=== PATIENT | female | born 1940 | race Caucasian/White ===

== ENCOUNTER 2022-11-08 07:28 | Inpatient (IN) | payer MEDICARE ==
[2022-11-08] MEDS ORDERED: Senokot S 8.6-50 MG TAB PO PRN (14:48)
[2022-11-08] MEDS ORDERED: Bisacodyl 5 MG TAB PO PRN (14:48)
[2022-11-08] MEDS ORDERED: Bisacodyl 10 MG SUPP PR PRN (14:48)
[2022-11-08] MEDS ORDERED: Calcium Carbonate 500 MG ChewTAB PO PRN (14:48)
[2022-11-08] MEDS ORDERED: Artificial Tear Sol 15 ML BOT EA EYE PRN (14:48)
[2022-11-08] MEDS ORDERED: Benzocaine/Menthol 1 LOZ LOZ PO PRN (14:48)
[2022-11-08] MEDS ORDERED: Sodium Chloride 0.65% Nasal 44 ML BOT EA NARE PRN (14:48)
[2022-11-08] MEDS ORDERED: Benzonatate 100 MG CAP PO PRN (14:48)
[2022-11-08] MEDS ORDERED: traMADol HCl 50 MG TAB PO PRN (14:50)
[2022-11-08] MEDS ORDERED: Ibuprofen 800 MG TAB PO PRN (14:55)
[2022-11-08] MEDS ORDERED: Promethazine HCl 25 MG SUPP PR PRN (14:57)
[2022-11-08] MEDS ORDERED: Alendronate Sodium 70 mg Tablet PO SCH (15:00)
[2022-11-10] MEDS: Acetaminophen 500 MG TAB PO SCH ×6 (18:13→23:25)
[2022-11-10] MEDS: Ascorbic Acid 500 mg Chewable Tablet PO SCH ×4 (19:34→21:38)
[2022-11-10] MEDS: Aspirin 81 mg Enteric Coated Tablet PO SCH ×4 (19:45→21:40)
[2022-11-10] MEDS: traZODone HCl 50 MG TAB PO SCH ×3 (19:46→21:38)
[2022-11-10] MEDS: Ferrous Sulfate 325 MG TAB PO SCH ×4 (19:46→21:40)
[2022-11-10] MEDS: Gabapentin 300 MG CAP PO SCH ×3 (19:46→21:38)
[2022-11-10] MEDS: Levothyroxine Sodium 25 MCG TAB PO SCH ×2 (19:47→20:01)
[2022-11-10] MEDS: Metoprolol Tartrate 25 MG TAB PO SCH (21:40)
[2022-11-10] MEDS: ALPRAZolam 0.25 MG TAB PO PRN (23:29)
[2022-11-11] MEDS: Acetaminophen 500 MG TAB PO SCH ×2 (06:28→10:59)
[2022-11-11] MEDS: Ascorbic Acid 500 mg Chewable Tablet PO SCH ×2 (08:20→20:14)
[2022-11-11] MEDS: Ferrous Sulfate 325 MG TAB PO SCH ×2 (08:21→20:14)
[2022-11-11] MEDS: Aspirin 81 mg Enteric Coated Tablet PO SCH ×2 (08:21→20:15)
[2022-11-11] MEDS: Metoprolol Tartrate 25 MG TAB PO SCH ×2 (08:21→20:15)
[2022-11-11] MEDS: ALPRAZolam 0.25 MG TAB PO PRN ×2 (08:25→20:23)
[2022-11-11] MEDS: Levothyroxine Sodium 25 MCG TAB PO SCH (09:41)
[2022-11-11] MEDS ORDERED: Ibuprofen 800 MG TAB PO PRN (13:13)
[2022-11-11] MEDS ORDERED: HYDROcodone/Acetaminophen 5/325 mg Tablet PO SCH (13:30)
[2022-11-11] MEDS: Cyclobenzaprine 10 MG TAB PO PRN (16:33)
[2022-11-11] MEDS ORDERED: Acetaminophen 500 MG TAB PO SCH (18:00)
[2022-11-11] MEDS: Gabapentin 300 MG CAP PO SCH (20:08)
[2022-11-11] MEDS: traMADol HCl 50 MG TAB PO PRN (20:14)
[2022-11-11] MEDS: traZODone HCl 50 MG TAB PO SCH (20:14)
[2022-11-11] MEDS: HYDROcodone/Acetaminophen 5/325 mg Tablet PO PRN (23:02)
[2022-11-12 05:24] LABS: #Basophils 0.1 thou/uL (0.0-0.2); #Eosinphils 0.5 thou/uL (0.0-0.7); #Lymphocytes 1.3 thou/uL (1.20-3.40); #Monocytes 0.6 thou/uL (0.11-0.59); #Neutrophils 7.9 thou/uL (1.40-6.50); %Basophils 1.2 % (0.0-1.0); %Eosinophils 5.1 % (0.0-10.0); %Lymphocytes 12.4 % (21.0-51.0); %Monocytes 5.4 % (0.0-10.0); %Neutrophils 75.9 % (42.0-75.0); Hemoglobin 8.8 g/dL (12.0-16.0); Mean Corpuscular HGB CONC 32.4 g/dL (32.0-36.0); Mean Corpuscular Hemoglobin 32.6 pg (27.0-31.0); Mean Platelet Volume 5.6 fL (7.4-10.4); Platelet Count 580 10x3/uL (130-400); RBC Distribution Width 16.4 % (11.5-14.5); Red Blood Cell (RBC) Count 2.71 mill/uL (4.20-5.40); White Blood Cell (WBC) Count 10.3 10x3/uL (4.8-10.8)
[2022-11-12 05:37] LABS: Anion Gap 12 mmol/L (10-20); BUN (Urea Nitrogen) 22 mg/dL (9.8-20.1); Calc. Creatinine Clearance 62 mL/min (70-130); Calcium 9.3 mg/dL (7.8-10.44); Carbon Dioxide 26 mmol/L (23-31); Chloride 101 mmol/L (98-107); Estimated GFR 88; Glucose 91 mg/dL (83-110); Potassium 4.3 mmol/L (3.5-5.1); Sodium 135 mmol/L (136-145)
[2022-11-12] MEDS: Ondansetron ODT 4 MG TAB PO PRN (07:54)
[2022-11-12] MEDS: Ferrous Sulfate 325 MG TAB PO SCH ×2 (09:04→21:43)
[2022-11-12] MEDS: Metoprolol Tartrate 25 MG TAB PO SCH ×3 (09:04→21:46)
[2022-11-12] MEDS: Ascorbic Acid 500 mg Chewable Tablet PO SCH ×2 (09:04→21:42)
[2022-11-12] MEDS: Aspirin 81 mg Enteric Coated Tablet PO SCH ×2 (09:04→21:43)
[2022-11-12] MEDS: Levothyroxine Sodium 25 MCG TAB PO SCH (09:04)
[2022-11-12] MEDS: HYDROcodone/Acetaminophen 5/325 mg Tablet PO PRN ×3 (09:13→23:21)
[2022-11-12] MEDS: traMADol HCl 50 MG TAB PO PRN ×2 (11:03→21:42)
[2022-11-12] MEDS: Cyclobenzaprine 10 MG TAB PO PRN (17:28)
[2022-11-12] MEDS: Gabapentin 300 MG CAP PO SCH (21:41)
[2022-11-12] MEDS: traZODone HCl 50 MG TAB PO SCH (21:42)
[2022-11-12] MEDS: ALPRAZolam 0.25 MG TAB PO PRN (23:19)
[2022-11-13] MEDS: Levothyroxine Sodium 25 MCG TAB PO SCH (05:50)
[2022-11-13] MEDS: Ferrous Sulfate 325 MG TAB PO SCH ×2 (08:22→20:47)
[2022-11-13] MEDS: Ascorbic Acid 500 mg Chewable Tablet PO SCH ×2 (08:22→20:47)
[2022-11-13] MEDS: Aspirin 81 mg Enteric Coated Tablet PO SCH ×2 (08:22→20:47)
[2022-11-13] MEDS: Metoprolol Tartrate 25 MG TAB PO SCH ×2 (08:23→20:57)
[2022-11-13] MEDS: HYDROcodone/Acetaminophen 5/325 mg Tablet PO PRN ×2 (11:19→21:00)
[2022-11-13] MEDS: traMADol HCl 50 MG TAB PO PRN (14:42)
[2022-11-13] MEDS: Cyclobenzaprine 10 MG TAB PO PRN (14:50)
[2022-11-13] MEDS ORDERED: Senokot S 8.6-50 MG TAB PO PRN (20:30)
[2022-11-13] MEDS: traZODone HCl 50 MG TAB PO SCH (20:47)
[2022-11-13] MEDS: ALPRAZolam 0.25 MG TAB PO PRN (20:47)
[2022-11-13] MEDS: Gabapentin 300 MG CAP PO SCH (20:48)
[2022-11-13 21:38] LABS: Bilirubin Negative (Negative); Blood, Urine Small (Negative); Clarity Clear (Clear); Glucose, Urine (Dipstick) Negative (Negative); Ketone, Urine Negative (Negative); Leukocyte Negative (Negative); Nitrite Negative (Negative); Protein, Urine (Dipstick) Negative (Neg-Trace); Specific Gravity, Urine 1.015 (1.005-1.030)
[2022-11-13 21:44] LABS: CAUTI Indications for Culture Pelvic or flank pain; RBC/HPF 0-3 HPF (0-3); WBC/HPF 0-3 HPF (0-3)
[2022-11-13 21:45] LABS: Urine Culture Reflex No No
[2022-11-14] MEDS: Levothyroxine Sodium 25 MCG TAB PO SCH (05:33)
[2022-11-14] MEDS: HYDROcodone/Acetaminophen 5/325 mg Tablet PO PRN ×3 (07:10→21:14)
[2022-11-14] MEDS: Metoprolol Tartrate 25 MG TAB PO SCH ×2 (08:39→21:16)
[2022-11-14] MEDS: Ferrous Sulfate 325 MG TAB PO SCH ×2 (08:39→21:16)
[2022-11-14] MEDS: Gabapentin 300 MG CAP PO SCH ×3 (08:39→21:16)
[2022-11-14] MEDS: Ascorbic Acid 500 mg Chewable Tablet PO SCH ×2 (08:40→21:16)
[2022-11-14] MEDS: Aspirin 81 mg Enteric Coated Tablet PO SCH ×2 (08:40→21:16)
[2022-11-14] MEDS: traMADol HCl 50 MG TAB PO PRN ×2 (08:43→16:08)
[2022-11-14] MEDS: ALPRAZolam 0.25 MG TAB PO PRN ×2 (08:43→21:16)
[2022-11-14] MEDS ORDERED: HYDROcodone/Acetaminophen 5/325 mg Tablet PO SCH (13:30)
[2022-11-14] MEDS: traZODone HCl 50 MG TAB PO SCH (21:16)
[2022-11-15] MEDS: Levothyroxine Sodium 25 MCG TAB PO SCH (05:59)
[2022-11-15] MEDS: HYDROcodone/Acetaminophen 5/325 mg Tablet PO PRN ×3 (05:59→22:13)
[2022-11-15] MEDS: Aspirin 81 mg Enteric Coated Tablet PO SCH ×2 (07:59→20:28)
[2022-11-15] MEDS: Ferrous Sulfate 325 MG TAB PO SCH ×2 (08:00→20:28)
[2022-11-15] MEDS: Gabapentin 300 MG CAP PO SCH ×3 (08:00→20:29)
[2022-11-15] MEDS: ALPRAZolam 0.25 MG TAB PO PRN ×2 (08:00→20:29)
[2022-11-15] MEDS: Ascorbic Acid 500 mg Chewable Tablet PO SCH ×2 (08:00→20:28)
[2022-11-15] MEDS: Metoprolol Tartrate 25 MG TAB PO SCH ×2 (08:01→20:29)
[2022-11-15] MEDS: Methotrexate Sodium 2.5 MG TAB PO SCH (15:03)
[2022-11-15] MEDS: traMADol HCl 50 MG TAB PO PRN (17:28)
[2022-11-15] MEDS: traZODone HCl 50 MG TAB PO SCH (20:28)
[2022-11-15] MEDS: Trospium 20 MG TAB PO SCH (20:28)
[2022-11-16] MEDS: Levothyroxine Sodium 25 MCG TAB PO SCH (06:18)
[2022-11-16] MEDS: HYDROcodone/Acetaminophen 5/325 mg Tablet PO PRN ×3 (06:18→21:02)
[2022-11-16] MEDS: Gabapentin 300 MG CAP PO SCH ×3 (08:14→21:00)
[2022-11-16] MEDS: ALPRAZolam 0.25 MG TAB PO PRN ×2 (08:14→21:05)
[2022-11-16] MEDS: Aspirin 81 mg Enteric Coated Tablet PO SCH ×2 (08:17→21:00)
[2022-11-16] MEDS: Ascorbic Acid 500 mg Chewable Tablet PO SCH ×2 (08:17→21:00)
[2022-11-16] MEDS: Metoprolol Tartrate 25 MG TAB PO SCH ×2 (08:17→21:00)
[2022-11-16] MEDS: traMADol HCl 50 MG TAB PO PRN ×2 (08:18→17:14)
[2022-11-16] MEDS: Ferrous Sulfate 325 MG TAB PO SCH ×2 (08:18→21:00)
[2022-11-16] MEDS: Trospium 20 MG TAB PO SCH (21:00)
[2022-11-16] MEDS: traZODone HCl 50 MG TAB PO SCH (21:00)
[2022-11-17] MEDS: Levothyroxine Sodium 25 MCG TAB PO SCH (05:58)
[2022-11-17] MEDS: Ferrous Sulfate 325 MG TAB PO SCH ×2 (08:59→20:42)
[2022-11-17] MEDS: Aspirin 81 mg Enteric Coated Tablet PO SCH ×2 (08:59→20:42)
[2022-11-17] MEDS: ALPRAZolam 0.25 MG TAB PO PRN ×2 (08:59→20:41)
[2022-11-17] MEDS: Ascorbic Acid 500 mg Chewable Tablet PO SCH ×2 (08:59→20:42)
[2022-11-17] MEDS: Gabapentin 300 MG CAP PO SCH ×3 (09:00→20:41)
[2022-11-17] MEDS: Metoprolol Tartrate 25 MG TAB PO SCH ×2 (09:01→20:23)
[2022-11-17] MEDS: traMADol HCl 50 MG TAB PO PRN ×2 (09:03→20:41)
[2022-11-17] MEDS: HYDROcodone/Acetaminophen 5/325 mg Tablet PO PRN ×2 (11:25→17:13)
[2022-11-17] MEDS: Trospium 20 MG TAB PO SCH (20:41)
[2022-11-17] MEDS: traZODone HCl 50 MG TAB PO SCH (20:42)
[2022-11-18] MEDS: HYDROcodone/Acetaminophen 5/325 mg Tablet PO PRN ×3 (05:50→20:56)
[2022-11-18] MEDS: Levothyroxine Sodium 25 MCG TAB PO SCH (05:50)
[2022-11-18 06:28] LABS: #Basophils 0.1 thou/uL (0.0-0.2); #Eosinphils 0.2 thou/uL (0.0-0.7); #Lymphocytes 0.8 thou/uL (1.20-3.40); #Monocytes 0.3 thou/uL (0.11-0.59); #Neutrophils 7.2 thou/uL (1.40-6.50); %Basophils 0.8 % (0.0-1.0); %Eosinophils 2.2 % (0.0-10.0); %Lymphocytes 9.7 % (21.0-51.0); %Neutrophils 84.4 % (42.0-75.0); Hemoglobin 8.8 g/dL (12.0-16.0); Mean Corpuscular HGB CONC 30.5 g/dL (32.0-36.0); Mean Corpuscular Hemoglobin 31.6 pg (27.0-31.0); Mean Platelet Volume 5.4 fL (7.4-10.4); Platelet Count 619 10x3/uL (130-400); RBC Distribution Width 16.9 % (11.5-14.5); Red Blood Cell (RBC) Count 2.79 mill/uL (4.20-5.40); White Blood Cell (WBC) Count 8.5 10x3/uL (4.8-10.8)
[2022-11-18 06:45] LABS: Anion Gap 12 mmol/L (10-20); BUN (Urea Nitrogen) 20 mg/dL (9.8-20.1); Calc. Creatinine Clearance 58 mL/min (70-130); Calcium 9.1 mg/dL (7.8-10.44); Carbon Dioxide 26 mmol/L (23-31); Chloride 100 mmol/L (98-107); Estimated GFR 84; Glucose 96 mg/dL (83-110); Potassium 4.3 mmol/L (3.5-5.1); Sodium 134 mmol/L (136-145)
[2022-11-18] MEDS: Aspirin 81 mg Enteric Coated Tablet PO SCH ×2 (08:06→20:53)
[2022-11-18] MEDS: Ascorbic Acid 500 mg Chewable Tablet PO SCH ×2 (08:06→20:52)
[2022-11-18] MEDS: Gabapentin 300 MG CAP PO SCH ×3 (08:06→20:53)
[2022-11-18] MEDS: Ferrous Sulfate 325 MG TAB PO SCH ×2 (08:06→20:52)
[2022-11-18] MEDS: Metoprolol Tartrate 25 MG TAB PO SCH ×2 (08:06→20:54)
[2022-11-18] MEDS: Ondansetron ODT 4 MG TAB PO PRN (08:15)
[2022-11-18] MEDS: traMADol HCl 50 MG TAB PO PRN ×2 (10:10→16:32)
[2022-11-18 19:11] VITALS: BMI 23.5
[2022-11-18] MEDS: traZODone HCl 50 MG TAB PO SCH (20:53)
[2022-11-18] MEDS: Trospium 20 MG TAB PO SCH (20:53)
[2022-11-18] MEDS: valACYclovir 500 MG TAB PO SCH (20:54)
[2022-11-18] MEDS: ALPRAZolam 0.25 MG TAB PO PRN (20:56)
[2022-11-19] MEDS: Levothyroxine Sodium 25 MCG TAB PO SCH (05:50)
[2022-11-19] MEDS: HYDROcodone/Acetaminophen 5/325 mg Tablet PO PRN ×3 (05:50→21:01)
[2022-11-19 07:01] LABS: #Basophils 0.1 thou/uL (0.0-0.2); #Eosinphils 0.3 thou/uL (0.0-0.7); #Lymphocytes 0.7 thou/uL (1.20-3.40); #Monocytes 0.6 thou/uL (0.11-0.59); #Neutrophils 8.2 thou/uL (1.40-6.50); %Basophils 0.8 % (0.0-1.0); %Eosinophils 2.6 % (0.0-10.0); %Lymphocytes 7.4 % (21.0-51.0); %Monocytes 5.6 % (0.0-10.0); %Neutrophils 83.6 % (42.0-75.0); Hemoglobin 8.8 g/dL (12.0-16.0); Mean Corpuscular HGB CONC 31.5 g/dL (32.0-36.0); Mean Corpuscular Hemoglobin 32.3 pg (27.0-31.0); Mean Platelet Volume 5.9 fL (7.4-10.4); Platelet Count 603 10x3/uL (130-400); RBC Distribution Width 16.7 % (11.5-14.5); Red Blood Cell (RBC) Count 2.71 mill/uL (4.20-5.40); White Blood Cell (WBC) Count 9.8 10x3/uL (4.8-10.8)
[2022-11-19 07:20] LABS: Anion Gap 12 mmol/L (10-20); BUN (Urea Nitrogen) 20 mg/dL (9.8-20.1); Calc. Creatinine Clearance 57 mL/min (70-130); Carbon Dioxide 27 mmol/L (23-31); Chloride 100 mmol/L (98-107); Estimated GFR 83; Glucose 94 mg/dL (83-110); Potassium 4.7 mmol/L (3.5-5.1); Sodium 134 mmol/L (136-145)
[2022-11-19] MEDS: Gabapentin 300 MG CAP PO SCH ×3 (08:37→20:38)
[2022-11-19] MEDS: Ondansetron ODT 4 MG TAB PO PRN (08:37)
[2022-11-19] MEDS: valACYclovir 500 MG TAB PO SCH ×3 (08:37→20:38)
[2022-11-19] MEDS: Metoprolol Tartrate 25 MG TAB PO SCH ×2 (08:37→20:38)
[2022-11-19] MEDS: Ferrous Sulfate 325 MG TAB PO SCH ×2 (08:38→20:38)
[2022-11-19] MEDS: traMADol HCl 50 MG TAB PO PRN ×2 (08:38→14:45)
[2022-11-19] MEDS: Ascorbic Acid 500 mg Chewable Tablet PO SCH ×2 (08:38→20:38)
[2022-11-19] MEDS: Aspirin 81 mg Enteric Coated Tablet PO SCH ×2 (08:38→20:38)
[2022-11-19] MEDS: traZODone HCl 50 MG TAB PO SCH (20:38)
[2022-11-19] MEDS: Trospium 20 MG TAB PO SCH (20:38)
[2022-11-19] MEDS: ALPRAZolam 0.25 MG TAB PO PRN (20:56)
[2022-11-20] MEDS: Levothyroxine Sodium 25 MCG TAB PO SCH (05:38)
[2022-11-20] MEDS: Ferrous Sulfate 325 MG TAB PO SCH ×2 (09:29→20:54)
[2022-11-20] MEDS: valACYclovir 500 MG TAB PO SCH ×3 (09:29→20:54)
[2022-11-20] MEDS: Aspirin 81 mg Enteric Coated Tablet PO SCH ×2 (09:29→20:55)
[2022-11-20] MEDS: Metoprolol Tartrate 25 MG TAB PO SCH ×2 (09:29→20:55)
[2022-11-20] MEDS: Gabapentin 300 MG CAP PO SCH ×3 (09:29→20:55)
[2022-11-20] MEDS: Ascorbic Acid 500 mg Chewable Tablet PO SCH ×2 (09:30→20:55)
[2022-11-20] MEDS: traMADol HCl 50 MG TAB PO PRN (09:32)
[2022-11-20] MEDS: HYDROcodone/Acetaminophen 5/325 mg Tablet PO PRN ×2 (14:24→20:55)
[2022-11-20] MEDS: ALPRAZolam 0.25 MG TAB PO PRN (20:55)
[2022-11-20] MEDS: traZODone HCl 50 MG TAB PO SCH (20:55)
[2022-11-20] MEDS: Trospium 20 MG TAB PO SCH (20:55)
[2022-11-21] MEDS: Levothyroxine Sodium 25 MCG TAB PO SCH (05:17)
[2022-11-21] MEDS: Ferrous Sulfate 325 MG TAB PO SCH ×2 (08:23→20:50)
[2022-11-21] MEDS: Metoprolol Tartrate 25 MG TAB PO SCH ×2 (08:23→20:51)
[2022-11-21] MEDS: Ascorbic Acid 500 mg Chewable Tablet PO SCH ×2 (08:23→20:51)
[2022-11-21] MEDS: valACYclovir 500 MG TAB PO SCH ×3 (08:23→20:57)
[2022-11-21] MEDS: Aspirin 81 mg Enteric Coated Tablet PO SCH ×2 (08:23→20:51)
[2022-11-21] MEDS: Gabapentin 300 MG CAP PO SCH ×3 (08:24→20:49)
[2022-11-21] MEDS: HYDROcodone/Acetaminophen 5/325 mg Tablet PO PRN ×2 (09:09→20:51)
[2022-11-21] MEDS: Ondansetron ODT 4 MG TAB PO PRN (09:10)
[2022-11-21] MEDS: ALPRAZolam 0.25 MG TAB PO PRN ×2 (13:43→20:51)
[2022-11-21] MEDS: traMADol HCl 50 MG TAB PO PRN (13:45)
[2022-11-21] MEDS: traZODone HCl 50 MG TAB PO SCH (20:51)
[2022-11-21] MEDS: Trospium 20 MG TAB PO SCH (20:57)
[2022-11-22] MEDS: Levothyroxine Sodium 25 MCG TAB PO SCH (06:04)
[2022-11-22] MEDS: HYDROcodone/Acetaminophen 5/325 mg Tablet PO PRN ×2 (07:56→15:19)
[2022-11-22] MEDS: ALPRAZolam 0.25 MG TAB PO PRN ×2 (07:56→21:00)
[2022-11-22] MEDS: Ondansetron ODT 4 MG TAB PO PRN (07:56)
[2022-11-22] MEDS: Ferrous Sulfate 325 MG TAB PO SCH ×2 (07:59→21:01)
[2022-11-22] MEDS: Metoprolol Tartrate 25 MG TAB PO SCH ×2 (07:59→21:01)
[2022-11-22] MEDS: Ascorbic Acid 500 mg Chewable Tablet PO SCH ×2 (07:59→21:01)
[2022-11-22] MEDS: valACYclovir 500 MG TAB PO SCH ×3 (07:59→20:59)
[2022-11-22] MEDS: Aspirin 81 mg Enteric Coated Tablet PO SCH ×2 (07:59→21:01)
[2022-11-22] MEDS: Gabapentin 300 MG CAP PO SCH ×3 (08:00→21:01)
[2022-11-22] MEDS: traMADol HCl 50 MG TAB PO PRN ×2 (12:05→20:59)
[2022-11-22] MEDS: Methotrexate Sodium 2.5 MG TAB PO SCH (15:06)
[2022-11-22] MEDS: Cyclobenzaprine 10 MG TAB PO PRN (20:59)
[2022-11-22] MEDS: traZODone HCl 50 MG TAB PO SCH (21:00)
[2022-11-22] MEDS: Trospium 20 MG TAB PO SCH (21:00)
[2022-11-23] MEDS: Levothyroxine Sodium 25 MCG TAB PO SCH (06:27)
[2022-11-23] MEDS: Gabapentin 300 MG CAP PO SCH ×3 (09:34→20:45)
[2022-11-23] MEDS: Ascorbic Acid 500 mg Chewable Tablet PO SCH ×2 (09:34→20:46)
[2022-11-23] MEDS: Metoprolol Tartrate 25 MG TAB PO SCH ×2 (09:35→20:45)
[2022-11-23] MEDS: Ferrous Sulfate 325 MG TAB PO SCH ×2 (09:37→20:47)
[2022-11-23] MEDS: Aspirin 81 mg Enteric Coated Tablet PO SCH ×2 (09:37→20:46)
[2022-11-23] MEDS: valACYclovir 500 MG TAB PO SCH ×3 (09:37→20:47)
[2022-11-23] MEDS: HYDROcodone/Acetaminophen 5/325 mg Tablet PO PRN ×2 (11:57→20:47)
[2022-11-23] MEDS: ALPRAZolam 0.25 MG TAB PO PRN (14:54)
[2022-11-23] MEDS: Trospium 20 MG TAB PO SCH (20:46)
[2022-11-23] MEDS: traZODone HCl 50 MG TAB PO SCH (20:47)
[2022-11-24] MEDS: Cyclobenzaprine 10 MG TAB PO PRN (02:19)
[2022-11-24] MEDS: HYDROcodone/Acetaminophen 5/325 mg Tablet PO PRN ×3 (02:20→15:32)
[2022-11-24] MEDS: Levothyroxine Sodium 25 MCG TAB PO SCH (06:02)
[2022-11-24] MEDS: Ondansetron ODT 4 MG TAB PO PRN (09:19)
[2022-11-24] MEDS: ALPRAZolam 0.25 MG TAB PO PRN ×2 (09:19→20:22)
[2022-11-24] MEDS: valACYclovir 500 MG TAB PO SCH ×3 (09:21→20:23)
[2022-11-24] MEDS: Gabapentin 300 MG CAP PO SCH ×3 (09:22→20:24)
[2022-11-24] MEDS: Aspirin 81 mg Enteric Coated Tablet PO SCH ×2 (09:22→20:23)
[2022-11-24] MEDS: Metoprolol Tartrate 25 MG TAB PO SCH ×2 (09:24→20:22)
[2022-11-24] MEDS: Ferrous Sulfate 325 MG TAB PO SCH ×2 (09:24→20:25)
[2022-11-24] MEDS: Ascorbic Acid 500 mg Chewable Tablet PO SCH ×2 (09:24→20:22)
[2022-11-24] MEDS: Trospium 20 MG TAB PO SCH (20:24)
[2022-11-24] MEDS: traZODone HCl 50 MG TAB PO SCH (20:24)
[2022-11-25] MEDS: HYDROcodone/Acetaminophen 5/325 mg Tablet PO PRN ×3 (00:27→20:50)
[2022-11-25] MEDS: Levothyroxine Sodium 25 MCG TAB PO SCH (06:16)
[2022-11-25 06:20] LABS: #Basophils 0.1 thou/uL (0.0-0.2); #Eosinphils 0.2 thou/uL (0.0-0.7); #Lymphocytes 0.8 thou/uL (1.20-3.40); #Monocytes 0.5 thou/uL (0.11-0.59); #Neutrophils 6.3 thou/uL (1.40-6.50); %Basophils 0.9 % (0.0-1.0); %Eosinophils 2.1 % (0.0-10.0); %Lymphocytes 9.7 % (21.0-51.0); %Monocytes 5.9 % (0.0-10.0); %Neutrophils 81.4 % (42.0-75.0); Mean Corpuscular HGB CONC 31.2 g/dL (32.0-36.0); Mean Corpuscular Hemoglobin 32.3 pg (27.0-31.0); Mean Platelet Volume 6.3 fL (7.4-10.4); Platelet Count 508 10x3/uL (130-400); RBC Distribution Width 17.1 % (11.5-14.5); Red Blood Cell (RBC) Count 2.78 mill/uL (4.20-5.40); White Blood Cell (WBC) Count 7.7 10x3/uL (4.8-10.8)
[2022-11-25] MEDS: Ascorbic Acid 500 mg Chewable Tablet PO SCH ×2 (09:03→20:49)
[2022-11-25] MEDS: Gabapentin 300 MG CAP PO SCH ×3 (09:03→20:48)
[2022-11-25] MEDS: Ferrous Sulfate 325 MG TAB PO SCH ×2 (09:03→20:49)
[2022-11-25] MEDS: Aspirin 81 mg Enteric Coated Tablet PO SCH ×2 (09:03→20:50)
[2022-11-25] MEDS: Metoprolol Tartrate 25 MG TAB PO SCH ×2 (09:04→20:48)
[2022-11-25] MEDS: ALPRAZolam 0.25 MG TAB PO PRN ×2 (09:09→20:50)
[2022-11-25] MEDS: valACYclovir 500 MG TAB PO SCH ×3 (10:33→20:48)
[2022-11-25 11:51] LABS: Iron 74 ug/dL (50-170); Iron Binding Capacity, Total 294 mcg/dL (265-497)
[2022-11-25] MEDS: Cyclobenzaprine 10 MG TAB PO PRN (13:16)
[2022-11-25] MEDS: traZODone HCl 50 MG TAB PO SCH (20:49)
[2022-11-25] MEDS: Trospium 20 MG TAB PO SCH (20:49)
[2022-11-26 05:40] LABS: #Eosinphils 0.2 thou/uL (0.0-0.7); #Lymphocytes 0.7 thou/uL (1.20-3.40); #Monocytes 0.6 thou/uL (0.11-0.59); #Neutrophils 5.5 thou/uL (1.40-6.50); %Basophils 0.5 % (0.0-1.0); %Eosinophils 2.2 % (0.0-10.0); %Lymphocytes 9.4 % (21.0-51.0); %Monocytes 8.4 % (0.0-10.0); %Neutrophils 79.4 % (42.0-75.0); Hemoglobin 8.9 g/dL (12.0-16.0); Mean Corpuscular HGB CONC 31.1 g/dL (32.0-36.0); Mean Corpuscular Hemoglobin 32.1 pg (27.0-31.0); Mean Platelet Volume 6.2 fL (7.4-10.4); Platelet Count 470 10x3/uL (130-400); RBC Distribution Width 17.4 % (11.5-14.5); Red Blood Cell (RBC) Count 2.79 mill/uL (4.20-5.40); White Blood Cell (WBC) Count 6.9 10x3/uL (4.8-10.8)
[2022-11-26 05:44] LABS: Anion Gap 12 mmol/L (10-20); BUN (Urea Nitrogen) 16 mg/dL (9.8-20.1); Calc. Creatinine Clearance 57 mL/min (70-130); Calcium 8.8 mg/dL (7.8-10.44); Carbon Dioxide 25 mmol/L (23-31); Chloride 104 mmol/L (98-107); Estimated GFR 83; Glucose 88 mg/dL (83-110); Potassium 4.5 mmol/L (3.5-5.1); Sodium 136 mmol/L (136-145)
[2022-11-26] MEDS: Levothyroxine Sodium 25 MCG TAB PO SCH (05:46)
[2022-11-26] MEDS: HYDROcodone/Acetaminophen 5/325 mg Tablet PO PRN ×2 (09:39→21:02)
[2022-11-26] MEDS: Gabapentin 300 MG CAP PO SCH ×3 (09:41→21:02)
[2022-11-26] MEDS: Ascorbic Acid 500 mg Chewable Tablet PO SCH ×2 (09:41→21:01)
[2022-11-26] MEDS: Metoprolol Tartrate 25 MG TAB PO SCH ×2 (09:41→21:01)
[2022-11-26] MEDS: Ferrous Sulfate 325 MG TAB PO SCH ×2 (09:42→21:02)
[2022-11-26] MEDS: Aspirin 81 mg Enteric Coated Tablet PO SCH ×2 (09:42→21:01)
[2022-11-26] MEDS: ALPRAZolam 0.25 MG TAB PO PRN ×2 (09:43→21:02)
[2022-11-26] MEDS: Ondansetron ODT 4 MG TAB PO PRN (11:18)
[2022-11-26] MEDS: Cyclobenzaprine 10 MG TAB PO PRN (11:19)
[2022-11-26] MEDS: traMADol HCl 50 MG TAB PO PRN (15:15)
[2022-11-26] MEDS: Trospium 20 MG TAB PO SCH (21:01)
[2022-11-26] MEDS: traZODone HCl 50 MG TAB PO SCH (21:01)
[2022-11-27] MEDS: Levothyroxine Sodium 25 MCG TAB PO SCH (06:12)
[2022-11-27] MEDS: Ferrous Sulfate 325 MG TAB PO SCH ×2 (09:10→20:42)
[2022-11-27] MEDS: Gabapentin 300 MG CAP PO SCH ×3 (09:10→20:41)
[2022-11-27] MEDS: ALPRAZolam 0.25 MG TAB PO PRN ×2 (09:10→20:41)
[2022-11-27] MEDS: Ascorbic Acid 500 mg Chewable Tablet PO SCH ×2 (09:10→20:42)
[2022-11-27] MEDS: HYDROcodone/Acetaminophen 5/325 mg Tablet PO PRN (09:11)
[2022-11-27] MEDS: Metoprolol Tartrate 25 MG TAB PO SCH ×2 (09:11→20:42)
[2022-11-27] MEDS: Aspirin 81 mg Enteric Coated Tablet PO SCH ×2 (09:12→20:41)
[2022-11-27] MEDS: Ondansetron ODT 4 MG TAB PO PRN (09:15)
[2022-11-27] MEDS: Cyclobenzaprine 10 MG TAB PO PRN (10:44)
[2022-11-27] MEDS: traMADol HCl 50 MG TAB PO PRN ×2 (10:45→20:40)
[2022-11-27] MEDS: traZODone HCl 50 MG TAB PO SCH (20:41)
[2022-11-27] MEDS: Trospium 20 MG TAB PO SCH (20:42)
[2022-11-28] MEDS: Levothyroxine Sodium 25 MCG TAB PO SCH (06:09)
[2022-11-28] MEDS: ALPRAZolam 0.25 MG TAB PO PRN ×2 (08:05→20:41)
[2022-11-28] MEDS: Ferrous Sulfate 325 MG TAB PO SCH ×2 (08:05→20:38)
[2022-11-28] MEDS: Gabapentin 300 MG CAP PO SCH ×3 (08:05→20:39)
[2022-11-28] MEDS: Aspirin 81 mg Enteric Coated Tablet PO SCH ×2 (08:05→20:38)
[2022-11-28] MEDS: Metoprolol Tartrate 25 MG TAB PO SCH ×2 (08:06→20:38)
[2022-11-28] MEDS: Ondansetron ODT 4 MG TAB PO PRN (08:06)
[2022-11-28] MEDS: Ascorbic Acid 500 mg Chewable Tablet PO SCH ×2 (08:06→20:38)
[2022-11-28] MEDS: traMADol HCl 50 MG TAB PO PRN (08:16)
[2022-11-28] MEDS: HYDROcodone/Acetaminophen 5/325 mg Tablet PO PRN ×2 (13:32→20:41)
[2022-11-28] MEDS: traZODone HCl 50 MG TAB PO SCH (20:38)
[2022-11-28] MEDS: Trospium 20 MG TAB PO SCH (20:39)
[2022-11-29] MEDS: Levothyroxine Sodium 25 MCG TAB PO SCH (05:40)
[2022-11-29 08:02] VITALS: BP 130/66; TEMP 97
[2022-11-29] MEDS: ALPRAZolam 0.25 MG TAB PO PRN (08:37)
[2022-11-29] MEDS: traMADol HCl 50 MG TAB PO PRN (08:37)
[2022-11-29] MEDS: Ferrous Sulfate 325 MG TAB PO SCH (08:37)
[2022-11-29] MEDS: Metoprolol Tartrate 25 MG TAB PO SCH (08:38)
[2022-11-29] MEDS: Aspirin 81 mg Enteric Coated Tablet PO SCH (08:38)
[2022-11-29] MEDS: Ascorbic Acid 500 mg Chewable Tablet PO SCH (08:38)
[2022-11-29] MEDS: Gabapentin 300 MG CAP PO SCH (08:38)
== END 2022-11-29 13:50 | disposition home or self-care (01) | DRG 561 ==
LOC: NAV ACUTE 11-10 16:25
PROVIDERS: ADMIT Family Medicine; ATTEND Family Medicine
DX: S72.142D Displaced intertrochanteric fracture of left femur, subsequent encounter for closed fracture with routine healing (principal); W18.30XD Fall on same level, unspecified, subsequent encounter; I11.0 Hypertensive heart disease with heart failure; E03.9 Hypothyroidism, unspecified; G89.4 Chronic pain syndrome; F41.9 Anxiety disorder, unspecified; F32.A Depression, unspecified; F43.10 Post-traumatic stress disorder, unspecified; L40.9 Psoriasis, unspecified; M48.062 Spinal stenosis, lumbar region with neurogenic claudication; R32 Unspecified urinary incontinence; B02.9 Zoster without complications; Z96.651 Presence of right artificial knee joint; Z96.641 Presence of right artificial hip joint; Z90.710 Acquired absence of both cervix and uterus; Z88.6 Allergy status to analgesic agent; Z79.890 Hormone replacement therapy; Z87.440 Personal history of urinary (tract) infections; Z79.899 Other long term (current) drug therapy; Z79.82 Long term (current) use of aspirin; L29.9 Pruritus, unspecified
CPT/HCPCS: 36415; 72131; 80048; 81001; 82728; 83540; 83550; 85025; J1650; J8610; Q0162